=== PATIENT | male | born 1950 | race Caucasian/White ===

== ENCOUNTER 2016-11-25 17:42 | Emergency (ER) | payer MEDICARE, OTHER ==
[~2016-11-25] VITALS: Ht 177.8 cm; Wt 95.2 kg
== END 2016-11-25 19:14 | disposition home or self-care (01) ==
LOC: ED 17:42
PROC: 0HCFXZZ Extirpation of Matter from Right Hand Skin, External Approach (ICD-10-PCS; principal; 2016-11-25)
DX: S60.551A Superficial foreign body of right hand, initial encounter (principal); Z90.89 Acquired absence of other organs; W45.8XXA Other foreign body or object entering through skin, initial encounter
CPT/HCPCS: 10120; 90471; 90715; 99282

== ENCOUNTER 2017-09-28 08:00 | Day surgery (SDC) | payer MEDICARE, OTHER ==
[~2017-09-28] VITALS: Ht 177.8 cm; Wt 95.2 kg
--- NOTE | ~2017-09-28 | OR ---
[facility] [address], [place] [address] Draft DATE OF OPERATION: 09/28/2017 SURGEON: Yaw Chapin MD PREOPERATIVE DIAGNOSIS: Trigger finger, right ring. POSTOPERATIVE DIAGNOSIS: Trigger finger, right ring. PROCEDURE: A1 blanquita release, right ring finger. ANESTHESIA: [place] block. SPECIMENS AND COMPLICATIONS: There were no specimens or complications. TOURNIQUET TIME: About 25 minutes. WHAT WAS DONE: The patient was taken to the operating room. After real block was administered by the anesthesia service, the right upper extremity was positioned, prepped and draped in a routine sterile fashion. A transverse incision was made over the 4th ray just slightly distal to the MCP flexion crease. The skin was divided sharply. Subcutaneous tissue was bluntly spread. We then used a small curved clamp to remove all the soft tissue off the anterior aspect of the flexor tendon sheath. Sonanell Beto retractors were placed medially and laterally to protect the neurovascular bundles. We then used the tip of a 15-blade to begin the release of the A1 blanquita. We then placed another Ragnell into the distal flap and used paracurved tenotomy scissors under direct vision to release the remaining portion of the A1 blanquita. We then placed the Ragnell retractor into the proximal flap and elevated it and then released the remaining portion of the A1 blanquita. At this point, there was a full range of motion of the MCP, PIP, and DIP joints of the ring finger with no encumbrance on the tendon. The wound was gently irrigated, closed in standard fashion. Sterile dressing applied. The patient was awakened and taken to the recovery room, where he arrived in stable condition. Counts were correct and antibiotic protocols were followed. PATIENT NAME: ADAM ACOSTA OPERATIVE REPORT DATE OF : 50 REPORT #: [id number] PHYSICIAN: YAW CHAPIN MD PCP: NO PRIMARY CARE PHYSICIAN REPORT IS CONFIDENTIAL AND NOT TO BE RELEASED WITHOUT AUTHORIZATION [address] [address] Draft MD ADRIANE Poe/ALENA /[id number] Copies: ~ PATIENT NAME: ADAM ACOSTA OPERATIVE REPORT DATE OF : 50 REPORT #: [id number] PHYSICIAN: YAW CHAPIN MD PCP: NO PRIMARY CARE PHYSICIAN REPORT IS CONFIDENTIAL AND NOT TO BE RELEASED WITHOUT AUTHORIZATION
[2017-09-28] MEDS ORDERED: ULTRAM50 MG PO (11:26)
== END 2017-09-28 11:35 | disposition home or self-care (01) ==
LOC: DS 08:00
PROVIDERS: Orthopaedic Surgery
PROC: 0LN70ZZ Release Right Hand Tendon, Open Approach (ICD-10-PCS; principal; 2017-09-28 09:30)
DX: M65.341 Trigger finger, right ring finger (principal)
CPT/HCPCS: J0690

== ENCOUNTER 2019-09-20 05:45 | Day surgery (SDC) | payer MEDICARE, OTHER ==
[~2019-09-20] VITALS: Ht 177.8 cm; Wt 78.9 kg
[~2019-09-20 05:45] MED LIST: ULTRAM50 MG PO
--- NOTE | 2019-09-20 07:39 | NUR ---
09/20/19 0739 Winter Holedr 0733- PT TO PACU IN SUPINE POSITION. EYES OPEN. ASKING QUESTIONS APPROPRIATELY. BREATHING EASY AND UNLABORED. SPO2 >95% ON ROOM AIR. VSS. 0736- PT TALKING WITH ORDER EXPEDITER. ASKING QUESTIONS ABOUT PROCEDURE. VSS. PT DENIES PAIN AND NAUSEA. BREATHING EASY AND UNLABORED ON ROOM AIR. SPO2 >95%. PT CAN MOVE FINGERS AND FEEL, BUT REPORTS SOME NUMBNESS.
[2019-09-20] MEDS ORDERED: HYDROCODON-ACE1 EA10 PO (08:26)
--- NOTE | 2019-09-20 11:38 | OR ---
[facility] [address] [place], [place] [address] Signed DATE OF OPERATION: 09/20/2019 SURGEON: Lizabeth Olmos MD PREOPERATIVE DIAGNOSES: 1. Right carpal tunnel syndrome. 2. Right index trigger finger. POSTOPERATIVE DIAGNOSES: 1. Right carpal tunnel syndrome. 2. Right index trigger finger. PROCEDURE PERFORMED: 1. Right carpal tunnel release. 2. Right index trigger finger release. PERSONAL FITNESS MANAGER: GRIFFIN Swanson. ANESTHESIA: [place] block. TOURNIQUET TIME: 20 minutes. BRIEF HISTORY: Adam is a 68-year-old male with pain and locking in his hand. He also had numbness. Risks and benefits of operative treatment were discussed with him and he elected to proceed. DESCRIPTION OF PROCEDURE: Once consent was obtained, he was taken to the operating room after adequate anesthesia. He was placed on the operating room table, all downside pressure points were well padded. The right arm was prepped and draped in a standard sterile fashion. The carpal tunnel was approached first through a 1.5 cm incision in the distal wrist crease, carried through skin and subcutaneous tissue and directly down the transverse carpal ligament. Under loupe magnification, it was dissected free of overlying soft tissue and released proximally a cm, distally to the distal extent. This was done under again direct loupe magnification. The carpal tunnel was found to be completely released. The wound was copiously irrigated with antibiotic solution, closed with 3-0 nylon. The Electronically Signed By: LIZABETH OLMOS MD 09/20/19 1138 PATIENT NAME: ADAM ACOSTA OPERATIVE REPORT DATE OF : 50 REPORT #: [id number] PHYSICIAN: LIZABETH OLMOS MD PCP: JESSY PRYOR MD REPORT IS CONFIDENTIAL AND NOT TO BE RELEASED WITHOUT AUTHORIZATION [facility] [address] [place], [place] [address] Signed index finger was then approached through a 1 cm incision overlying the A1 blanquita. This was taken through skin and subcutaneous tissue and directly down. There was small Dupuytren's bands were removed as well. The A1 blanquita was then released using tenotomy scissors under direct loupe magnification. The patient was asked to move his fingers, able to fully flex and fully extend with no triggering or locking. The wound was copiously irrigated with antibiotic solution, closed with 3-0 nylon. Both wounds were dressed with bacitracin, Adaptic, 4 x 8s, and gauze. He tolerated the procedure well. All sponge, needle, and instrument counts were correct. It should also be noted, we injected 6 mL of 0.25% plain Marcaine in both wounds. Lizabeth Olmos MD BA/DORIEL /[id number] Copies: ~ Electronically Signed By: LIZABETH OLMOS MD 09/20/19 1138 PATIENT NAME: ADAM ACOSTA OPERATIVE REPORT DATE OF : 50 REPORT #: [id number] PHYSICIAN: LIZABETH OLMOS MD PCP: JESSY PRYOR MD REPORT IS CONFIDENTIAL AND NOT TO BE RELEASED WITHOUT AUTHORIZATION
== END 2019-09-20 08:10 | disposition home or self-care (01) ==
LOC: DS 05:45
PROVIDERS: Specialist
PROC: 0LN70ZZ Release Right Hand Tendon, Open Approach (ICD-10-PCS; principal; 2019-09-20 06:45)
PROC: 01N50ZZ Release Median Nerve, Open Approach (ICD-10-PCS; 2019-09-20 06:45)
DX: G56.01 Carpal tunnel syndrome, right upper limb (principal); M65.321 Trigger finger, right index finger
CPT/HCPCS: 01810; J0690; J7121

== ENCOUNTER 2019-11-01 07:55 | Day surgery (SDC) | payer MEDICARE, OTHER ==
[~2019-11-01] VITALS: Ht 177.8 cm; Wt 75.3 kg
[~2019-11-01 07:55] MED LIST changes: +HYDROCODON-ACE1 EA10 PO
[2019-11-01] MEDS ORDERED: HYDROCODON-ACE1 EA10 PO (12:24)
--- NOTE | 2019-11-01 12:33 | NUR ---
11/01/19 Nenita3 Yolanda Griffin 1221- PT ARRIVES TO PACU ALERT AND ORIENTED. PT REPORTS NO PAIN OR NAUSEA. RESP EVEN AND UNLABORED. OXYGEN SAT HIGH 90'S TO 100% ON RA. ICE PACK APPLIED TO PT'S LEFT WRIST. 1232- PT DENIES WANTING ANYTHING TO DRINK AT THIS TIME.
--- NOTE | 2019-11-04 08:53 | OR ---
[facility] [address] [place], [place] [address] Signed DATE OF OPERATION: 11/01/2019 SURGEON: Lizabeth Olmos MD PREOPERATIVE DIAGNOSIS: Left carpal tunnel syndrome, left index trigger finger. POSTOPERATIVE DIAGNOSIS: Left carpal tunnel syndrome, left index trigger finger. PROCEDURE PERFORMED: Left carpal tunnel release, left index trigger finger release. AUDIO VISUAL DIRECTOR: CAL Shah. ANESTHESIA: [place] block. TOURNIQUET TIME: 20 minutes. BRIEF HISTORY: Adam is a 68-year-old gentleman, who has pain and numbness in his hand with locking and triggering in the index finger as well as the ring finger. Risks and benefits of operative treatment were discussed with him. He elected to proceed. DESCRIPTION OF PROCEDURE: Once consent was obtained, he was taken to the operating room. After adequate anesthesia, he was prepped and draped in a standard sterile fashion. The trigger finger was approached first. A 1 cm incision was made in the distal palmar crease, carried through skin and subcutaneous tissue. Under direct loupe magnification, the tendon sheath was identified and dissected free of overlying soft tissue. The A1 blanquita was transected and the tendon moved quite smoothly after that. The wound was copiously irrigated with antibiotic solution, closed with 3-0 nylon. Attention was then turned to the carpal tunnel, which was approached through a 1.5 cm incision in the distal wrist crease, carried through skin and subcutaneous tissue. Palmaris longus was identified, retracted, and protected. Transverse carpal ligament was identified and again under loupe magnification was dissected free of overlying soft tissue. It was then transected approximately 1 cm and distally to the distal extent. This was palpated using the Shelley Electronically Signed By: LIZABETH OLMOS MD 11/04/19 0853 PATIENT NAME: ADAM ACOSTA OPERATIVE REPORT DATE OF : 50 REPORT #: [id number] PHYSICIAN: LIZABETH OLMOS MD PCP: JESSY PRYOR MD REPORT IS CONFIDENTIAL AND NOT TO BE RELEASED WITHOUT AUTHORIZATION [facility] [address] [place], [place] [address] Signed elevator and again under direct visualization. It was found to be completely released. The wound was copiously irrigated, closed with 3-0 nylon. Both wounds were then infiltrated with a total of 8 mL of 0.25% Marcaine with epinephrine. Both wounds were then dressed with bacitracin, Adaptic, 4 x 8s, and gauze. He tolerated the procedure well. All sponge, needle, and instrument counts were correct. Lizabeth Olmos MD BA/MODL /[id number] Copies: ~ Electronically Signed By: LIZABETH OLMOS MD 11/04/19 0853 PATIENT NAME: ADAM ACOSTA OPERATIVE REPORT DATE OF : 50 REPORT #: [id number] PHYSICIAN: LIZABETH OLMOS MD PCP: JESSY PRYOR MD REPORT IS CONFIDENTIAL AND NOT TO BE RELEASED WITHOUT AUTHORIZATION
== END 2019-11-01 12:55 | disposition home or self-care (01) ==
LOC: DS 07:55
PROVIDERS: Specialist
PROC: 01N50ZZ Release Median Nerve, Open Approach (ICD-10-PCS; principal; 2019-11-01 09:15)
PROC: 0LN80ZZ Release Left Hand Tendon, Open Approach (ICD-10-PCS; 2019-11-01 09:15)
DX: G56.02 Carpal tunnel syndrome, left upper limb (principal); M65.322 Trigger finger, left index finger; M65.342 Trigger finger, left ring finger
CPT/HCPCS: 01810; J0690; J1885; J2001; J2250; J2704; J7121

== ENCOUNTER 2019-12-25 18:11 | Emergency (ER) | payer MEDICARE ==
[~2019-12-25] VITALS: Ht 177.8 cm; Wt 75.3 kg
--- OUTSIDE RECORDS SUMMARY | 2019-12-25 19:22 | XMS | Clinical Summary ---
Demographics + + + | Address | [address] | | | [place] [address] | + + + | Home Phone | | + + + | Preferred Language | Unknown | + + + | Marital Status | | + + + | Shinto Affiliation | Unknown | + + + | Race | White | + + + | Ethnic Group | Not or | + + + Author + + + | Author | [facility] | | | and [place] | + + + | Organization | [facility] | | | and [place] | + + + | Address | Unknown | + + + | Phone | Unavailable | + + + Support + + + + + | Name | Relationship | Address | Phone | + + + + + | Nayla Tinajero | ECON | [address] | | | | | [place], [place] | | | | | [address] | | + + + + + Care Team Providers + +------+ + | Care Silk Soaker Name | Role | Phone | + +------+ + | No, Unknownpcp | PCP | | + +------+ + Allergies No Known Allergies Medications No known medications Active Problems No known active problems Social History + +-------+ +--------+------+ | Tobacco Use | Types | Packs/Day | Years | Date | | | | | Used | | + +-------+ +--------+------+ | Never Smoker | | | | | + +-------+ +--------+------+ + +---+---+---+ | Smokeless Tobacco: | | | | | Never Used | | | | + +---+---+---+ + + +---------+ + | Alcohol Use | Drinks/Week | oz/Week | Comments | + + +---------+ + | Not Asked | 0 Standard drinks | 0.0 | | | | or equivalent | | | + + +---------+ + + + + | Sex Assigned at | Date Recorded | | | | + + + | Not on file | | + + + Last Filed Vital Signs + + + + + | Vital Sign | Reading | Time Taken | Comments | + + + + + | Blood Pressure | 118/80 | 07/30/2014 2:55 PM | | | | | PDT | | + + + + + | Pulse | 80 | 07/30/2014 2:55 PM | | | | | PDT | | + + + + + | Temperature | 36.6 C (97.8 F) | 07/30/2014 2:55 PM | | | | | PDT | | + + + + + | Respiratory Rate | 14 | 07/30/2014 2:55 PM | | | | | PDT | | + + + + + | Oxygen Saturation | - | - | | + + + + + | Inhaled Oxygen | - | - | | | Concentration | | | | + + + + + | Weight | 97.1 kg (214 lb) | 07/30/2014 2:55 PM | | | | | PDT | | + + + + + | Height | 177.8 cm (5' 10") | 07/30/2014 2:55 PM | | | | | PDT | | + + + + + | Body Mass Index | 30.71 | 07/30/2014 2:55 PM | | | | | PDT | | + + + + + Plan of Treatment + + +-------+ + | Health Maintenance | Due Date | Last | Comments | | | | Done | | + + +-------+ + | Vaccine: | | | | | Dtap/Tdap/Td (1 - | 0 | | | | Tdap) | | | | + + +-------+ + | Vaccine: Zoster (1 | | | | | of 2) | 1 | | | + + +-------+ + | Vaccine: | | | | | Pneumococcal 65+ (1 | 6 | | | | of 1 - PPSV23) | | | | + + +-------+ + | Vaccine: Influenza | | | | | (#1) | 0 | | | + + +-------+ + Results Not on filefrom Last 3 Months Advance Directives + + + + + | Type | Date Recorded | Patient | Explanation | | | | Traveling Inventory Associate | | + + + + + | Power of | | | | | Customer Training Specialist | | | | + + + + + | Advance | | | | | Directive | | | | + + + + +
--- OUTSIDE RECORDS SUMMARY | 2019-12-25 19:22 | XMS | Encounter Summary ---
Demographics + + + | Address | [address] | | | [place] [address] | + + + | Home Phone | | + + + | Preferred Language | Unknown | + + + | Marital Status | | + + + | Confucianist Affiliation | Unknown | + + + | Race | White | + + + | Ethnic Group | Not or | + + + Author + + + | Author | [facility] | | | and [place] | + + + | Organization | [facility] | | | and [place] | + + + | Address | Unknown | + + + | Phone | Unavailable | + + + Support + + + + + | Name | Relationship | Address | Phone | + + + + + | Nayla Tinajero | ECON | [address] | | | | | [place] | | | | | [address] | | + + + + + Care Team Providers + +------+ + | Care Poultry Raiser Name | Role | Phone | + +------+ + PCP | Unavailable | + +------+ + Encounter Details +--------+ + + + + | Date | Type | Department | Care Team | Description | +--------+ + + + + | 11/26/ | Hospital | [facility] | Cristhian Jj MD | | | 2007 - | Encounter | MED CTR GENERIC OP | [address] | | | | | CONV DEPT [address] | [place] | | | 12/06/ | | [place], | [address] | | | 2007 | | [place] [address] | | | | | | [phone] | | | +--------+ + + + + Social History + +-------+ +--------+------+ | Tobacco Use | Types | Packs/Day | Years | Date | | | | | Used | | + +-------+ +--------+------+ | Never Assessed | | | | | + +-------+ +--------+------+ + + + | Sex Assigned at | Date Recorded | | | | + + + | Not on file | | + + + documented as of this encounter Plan of Treatment Not on filedocumented as of this encounter Visit Diagnoses Not on filedocumented in this encounter"
--- OUTSIDE RECORDS SUMMARY | 2019-12-25 19:22 | XMS | Encounter Summary ---
Demographics + + + | Address | [address] | | | [place] [address] | + + + | Home Phone | | + + + | Preferred Language | Unknown | + + + | Marital Status | | + + + | Voodoo Affiliation | Unknown | + + + | Race | White | + + + | Ethnic Group | Not or | + + + Author + + + | Author | [facility] | | | and [place] | + + + | Organization | [facility] | | | and [place] | + + + | Address | Unknown | + + + | Phone | Unavailable | + + + Support + + + + + | Name | Relationship | Address | Phone | + + + + + | Nayla Tinajero | ECON | [address] | | | | | [place] | | | | | [address] | | + + + + + Care Team Providers + +------+ + | Care Floor Attendant Name | Role | Phone | + +------+ + | No, Unknownpcp | PCP | | + +------+ + Encounter Details +--------+---------+ + + + | Date | Type | Department | Care Team | Description | +--------+---------+ + + + | 07/30/ | Office | [facility] | Ziyad Jarvis, | Health examination | | 2015 | Visit | EXAMS [address] | MD [address] | of defined | | | | [place] | [place] | subpopulation | | | | [address] | [address] | (Primary Dx) | | | | [phone] | | | +--------+---------+ + + + Social History + +-------+ [...] + + documented as of this encounter Last Filed Vital Signs + + + [...] | | + + + + + documented in this encounter Progress Notes Ziyad Jarvis MD - 07/30/2014 3:48 PM Daar presented for a Second Class [place] medical exam. I have not seen him before. He last applied for an [facility] medical certificate in Jul, 2002. 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 He denied any major past medical problems except for frequent, relatively severe headaches when he was a child and teenager. The problem resolved spontaneously when he was a young ad ult. He had a trigger finger released on his right hand a few years ago and had a trigger f caleb release on his left hand 9 days ago. He has also had a right inguinal hernia repair. On examination he appeared to be in good general health. He requires corrective lenses for near and distant vision; his intermediate visual acuity is within acceptable limits without correction. He is mildly overweight with a BMI of 30.71. His blood pressure is always low , by his history, and today it was 118/80. He has a small, healing surgical wound on the pa lm of his left hand, with sutures still in place. He has a small, asymptomatic left inguina l hernia. The remainder of his examination was unremarkable. I spoke with him about his screening for sleep apnea. He is over age 50 and has a neck cir cumference of 41 cm, and he is a male. This does place him at a higher risk for sleep apnea but he has no other significant findings. The remainder of his screening was negative. I did not believe he needed further evaluation. He does have 2 family members who have been d iagnosed with obstructive sleep apnea and who use CPAP. Disposition: He was given a second class medical certificate with the limitation to wear co rrective lenses for distant vision, have glasses for near vision. documented in this encounter Plan of Treatment Not on filedocumented as of this encounter Procedures + +--------+ + + + | Procedure Name | Priori | Date/Time | Associated Diagnosis | Comments | | | ty | | | | + +--------+ + + + | POCT URINALYSIS, | Routin | 07/30/2014 | Health examination | Results for this | | AUTO WITH CONF | e | 2:51 PM | of defined | procedure are in the | | | | PDT | subpopulation | results section. | + +--------+ + + + documented in this encounter Results POCT Urinalysis Dipstick Automated (07/30/2014 2:51 PM PDT) + + + + + + | Component | Value | Ref Range | Performed | Pathologist | | | | | At | Signature | + + + + + + | Color, UA, | Yellow | Yellow, Light | | | | POC | | Yellow | | | + + + + + + | Clarity, | Clear | | | | | UA, POC | | | | | + + + + + + | Glucose, | Negative | Negative | | | | UA, POC | | | | | + + + + + + | Bilirubin, | Negative | Negative | | | | UA, POC | | | | | + + + + + + | Ketones, | Trace (A) | Negative, 100 | | | | UA, POC | | mg/dL | | | + + + + + + | Specific | 1.030 | 1.001 - 1.030 | | | | [place], | | | | | | UA, POC | | | | | + + + + + + | Blood, UA, | Negative | Negative | | | | POC | | | | | + + + + + + | pH, UA, POC | 5.0 | 5.0, 6.0, 7.0, | | | | | | 8.0, 5.5, 6.5, | | | | | | 7.5 | | | + + + + + + | Protein, | Negative | Negative | | | | UA, POC | | | | | + + + + + + | Urobilinoge | 0.2 | 0.2, Negative, | | | | n, UA, POC | | Normal, < 0.2 | | | | | | mg/dL, 1 mg/dL, | | | | | | < 0.2 E.U./dl, | | | | | | 1.0 E.U./dL, | | | | | | 0.2 mg/dL | | | + + + + + + | Nitrite, | Negative | | | | | UA, POC | | | | | + + + + + + | Leukocyte | Negative | Negative | | | | Esterase, | | | | | | UA, POC | | | | | + + + + + + | Reducing | | | | | | Substances, | | | | | | Urine | | | | | + + + + + + | Bilirubin | | Negative | | | | Confirmatio | | | | | | n by | | | | | | Ictotest, | | | | | | Urine | | | | | + + + + + + | Remark | | | | | + + + + + + + + | Specimen | + + | Urine specimen | | (specimen) | + + documented in this encounter Visit Diagnoses + + | Diagnosis | + + | Health examination of defined subpopulation - Primary | + + documented in this encounter
--- OUTSIDE RECORDS SUMMARY | 2019-12-25 19:23 | XMS ---
PreManage Notification: ADAM ACOSTA Security [employer] Marketing Analyst Events No recent Security Events currently on file CRITERIA MET - Group Notification CARE PROVIDERS There are no care providers on record at this time. Niyah has no Care Guidelines for this patient. Elliott VISIT COUNT (12 MO.) 1 SILVINO Romano TOTAL 1 NOTE: Visits indicate total known visits. ED/C VISIT TRACKING (12 MO.) 12/25/2019 18:11 [place] [place] TYPE: Emergency COMPLAINT: - HEAD WOUND INPATIENT VISIT TRACKING (12 MO.) No inpatient visits to display in this time frame [email or web address]
== END 2019-12-25 19:40 | disposition home or self-care (01) ==
LOC: ED 18:11
DX: S06.0X1A Concussion with loss of consciousness of 30 minutes or less, initial encounter (principal); S01.01XA Laceration without foreign body of scalp, initial encounter; W11.XXXA Fall on and from ladder, initial encounter; E11.9 Type 2 diabetes mellitus without complications; Z88.8 Allergy status to other drugs, medicaments and biological substances
CPT/HCPCS: 12002; 70450; 99284-25

== ENCOUNTER 2020-09-18 06:30 | Day surgery (SDC) | payer MEDICARE ==
[~2020-09-18] VITALS: Ht 177.8 cm; Wt 80.0 kg
--- NOTE | 2020-09-18 09:19 | NUR ---
09/18/20 0919 Winter Hodler 0916- PT TO PACU IN SF POSITION. EYES OPEN TALKING WITH RN APPROPRIATELY. SLIGHTLY DROWSY. BREATHING EASY AND UNLABORED. SPO2 >95% ON 6 L O2 VIA SIMPLE MASK.
[2020-09-18] MEDS ORDERED: HYDROCODON-ACE1 EA10 PO (09:20)
--- NOTE | 2020-09-18 09:39 | NUR ---
PT ALERT, ORIENTED AND SITTING IN CHAIR,WITH BLANKET DRAPPED ACROSS HIM. PT MENTIONED THIS WILL BE HIS 6TH TRIGGER FINGER RELEASE PROCEDURE. PT STATED HIS WILL PICKUP AFTER SURGERY. STAFF HAVE HER NUMBER. PT SEEMS PLEASED WITH CARE. GAVE BLESSING AND WILL FOLLOW
--- NOTE | 2020-09-18 11:15 | OR ---
[facility] [address] [place], [place] [address] Signed DATE OF OPERATION: 09/18/2020 SURGEON: Lizabeth Olmos MD PREOPERATIVE DIAGNOSIS: Trigger finger, left ring; Dupuytren's nodule, left ring. POSTOPERATIVE DIAGNOSIS: Trigger finger, left ring; Dupuytren's nodule, left ring. PROCEDURE PERFORMED: 1. Left ring partial fasciectomy. 2. Left ring trigger finger release. ALUMNI RELATIONS COORDINATOR: None. ANESTHESIA: [place] block. TOURNIQUET TIME: 20 minutes. BRIEF HISTORY: Maurizio is a 69-year-old gentleman with painful locking in his ring finger. He had 6 prior trigger finger releases on various sites. On exam, he was noted to have a large nodule subcutaneously overlying the 4th ray. Risks and benefits of excision of this nodule and trigger finger release were discussed with him and he elected to proceed. DESCRIPTION OF PROCEDURE: Once consent was obtained, he was taken to the operating room. After adequate anesthesia, he was placed on operating room table. All downside pressure points were well padded. The hand was prepped and draped in a standard sterile fashion. A 2-1/2 cm incision was made transversely in the distal palmar crease carried through skin and subcutaneous tissue and careful dissection was undertaken to remove the Dupuytren's nodule under direct loupe magnification. We did buttonhole to skin distal to the incision. Otherwise, the Dupuytren's nodule was removed uneventfully. It measured 2.5 cm in length and 1 cm in diameter. The underlying soft tissue was then dissected overlying the A1 blanquita. It was released under again direct loupe magnification with tenotomy scissors. The patient was asked to flex his hand. He was able to fully flex Electronically Signed By: LIZABETH OLMOS MD 09/18/20 1115 PATIENT NAME: MAURIZIO ACOSTA OPERATIVE REPORT DATE OF : 50 REPORT #: [id number] PHYSICIAN: LIZABETH OLMOS MD PCP: JESSY PRYOR MD REPORT IS CONFIDENTIAL AND NOT TO BE RELEASED WITHOUT AUTHORIZATION [facility] [address] [place], [place] [address] Signed and fully extend without any triggering or locking. The wound was copiously irrigated with normal saline, closed with 3-0 Monocryl and injected with 6 mL of 0.25% plain Marcaine. It was then dressed with bacitracin, Adaptic 4 x 8s and gauze, and was placed in a bulky hand dressing as well. He was awakened and taken to the recovery room in satisfactory condition. All sponge, needle, and instrument counts were correct. Lizabeth Olmos MD BA/MODL /[id number] Copies: ~ Electronically Signed By: LIZABETH OLMOS MD 09/18/20 1115 PATIENT NAME: MAURIZIO ACOSTA OPERATIVE REPORT DATE OF : 50 REPORT #: [id number] PHYSICIAN: LIZABETH OLMOS MD PCP: JESSY PRYOR MD REPORT IS CONFIDENTIAL AND NOT TO BE RELEASED WITHOUT AUTHORIZATION
== END 2020-09-18 09:55 | disposition home or self-care (01) ==
LOC: DS 06:30
PROVIDERS: ATTEND Specialist
PROC: 0LN80ZZ Release Left Hand Tendon, Open Approach (ICD-10-PCS; 2020-09-18)
PROC: 0JNK0ZZ Release Left Hand Subcutaneous Tissue and Fascia, Open Approach (ICD-10-PCS; principal; 2020-09-18 09:30)
DX: M65.342 Trigger finger, left ring finger (principal); M72.0 Palmar fascial fibromatosis [Dupuytren]; G56.00 Carpal tunnel syndrome, unspecified upper limb; Z20.822 Contact with and (suspected) exposure to COVID-19; Z87.39 Personal history of other diseases of the musculoskeletal system and connective tissue
CPT/HCPCS: 01810; J0690; J3010; J7121; U0003